=== PATIENT | male | born 1945 | race Caucasian/White ===

== ENCOUNTER 2023-11-20 09:38 | Emergency (ER) | payer MEDICARE, BC ==
--- NOTE | 2023-11-20 09:45 | ERPHSYRPT ---
- History of Present Illness Time Seen by Provider: 11/20/23 09:45 Historian: patient, family Exam Limitations: no limitations Physician History: This is a 78-year-old white male patient who was brought into the emergency department by private vehicle who is escorted by the patient's spouse. Patient's primary care provider is Dr. Flowers. 3 days ago, the patient inzahra shea was complaining of right-sided abdominal pain. The pain was intermittent. Now, the pain has become more constant and has increased in intensity. He describes it as sharp and it is more generalized. Patient currently denies chest pain. He denies shortness of breath. Patient does have a history of hypertension, atrial fibrillation on Eliquis, CHF as well. Timing/Duration: day(s) (3), worse Quality: sharpness Abdominal Pain Onset Location: RUQ Pain Radiation: other (Generalized abdomen) Severity of Pain-Max: moderate Severity of Pain-Current: mild (To moderate) Associated Symptoms: denies symptoms Previous symptoms: no prior history, no recent treatment Allergies/Adverse Reactions: No Known Drug Allergies Allergy (Verified 11/20/23 10:05) Home Medications: Apixaban [Eliquis] 5 mg PO BID 11/20/23 [History] Carvedilol 3.125 mg [Coreg 3.125 MG] 3.125 mg PO BID 11/20/23 [History] Losartan Potassium 50 mg [Cozaar 50 MG] 50 mg PO DAILY 11/20/23 [History] Spironolactone 25 mg [Aldactone 25 MG] 12.5 mg PO DAILY 11/20/23 [History] Hx Tetanus, Diphtheria Vaccination/Date Given: No Hx Influenza Vaccination/Date Given: No Hx Pneumococcal Vaccination/Date Given: Yes Travel Risk - International Travel Have you traveled outside of the country in past 3 weeks: No - Emerging Infectious Disease Are you exhibiting symptoms associated with any current EIDs: No - Review of Systems Constitutional: No Symptoms Eyes: No Symptoms Ears, Nose, & Throat: No Symptoms Respiratory: No Symptoms Cardiac: No Symptoms Abdominal/Gastrointestinal: Abdominal Pain (Primarily right side) Genitourinary Symptoms: No Symptoms Musculoskeletal: No Symptoms Skin: No Symptoms Neurological: No Symptoms Psychological: No Symptoms Endocrine: No Symptoms Hematologic/Lymphatic: No Symptoms Immunological/Allergic: No Symptoms All Other Systems: Reviewed and Negative - Past Medical History Pertinent Past Medical History: Yes Cardiac History: Hypertension, Myocardial Infarction (CA) Male Reproductive Disorders: Prostate Cancer Other Medical History: MELANOMA EYE, - Past Surgical History Past Surgical History: Yes Male Surgical History: Prostate Surgery, Other Other Surgical History: EYE SURG , SEEDS PROSTATE - Social History Smoking Status: Never smoker Exposure to second hand smoke: No Drug Use: none Patient Lives Alone: No - Social Determinants of Health Will the patient participate in the screening: Yes Do you worry about a steady place to live?: No In the past 12 months,have you had to go without utilities?: No Transportation Issues: No Has anyone in your support network made you feel unsafe?: No Have you or anyone in your house had to go without enough: No - Nursing Vital Signs Nursing Vital Signs: Initial Vital Signs Temperature 98.1 F 11/20/23 10:00 Pulse Rate 72 11/20/23 10:00 Respiratory Rate 30 H 11/20/23 10:00 Blood Pressure 137/74 11/20/23 10:00 O2 Sat by Pulse Oximetry 96 11/20/23 10:00 Pain Scale Pain Intensity 5 - Physical Exam General Appearance: no apparent distress, alert, anxiety, obese Ears, Nose, Throat Exam: normal ENT inspection, moist mucous membranes Neck Exam: normal inspection, non-tender, supple, full range of motion Respiratory Exam: normal breath sounds, lungs clear, airway intact, No chest tenderness, No respiratory distress Cardiovascular Exam: regular rate/rhythm, normal heart sounds, normal peripheral pulses Gastrointestinal/Abdomen Exam: soft, normal bowel sounds, tenderness (Right side. 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 No acute ischemia. QTc 457) Ordered Tests: Active Orders 24 hr Category Date Time Status EKG-ER Only STAT Care 11/20/23 10:41 Active IV Insertion STAT Care 11/20/23 10:41 Active ABDOMEN AND PELVIS W/0 CONTRAS [CT] Stat Exams 11/20/23 10:41 Completed CHEST 1 VIEW (PORTABLE) Stat Exams 11/20/23 10:42 Completed AMYLASE Stat Lab 11/20/23 10:35 Completed CBC W DIFF Stat Lab 11/20/23 10:35 Completed CMP Stat Lab 11/20/23 10:35 Completed LIPASE Stat Lab 11/20/23 10:35 Completed Lactic Acid Stat Lab 11/20/23 11:30 Completed TROPONIN Q4H Lab 11/20/23 10:35 Completed TROPONIN Q4H Lab 11/20/23 14:45 Ordered TROPONIN Q4H Lab 11/20/23 18:45 Ordered UA W/RFX UR CULTURE Stat Lab 11/20/23 10:41 Ordered Medication Summary Discontinued Medications Generic Name Dose Route Start Last Admin Trade Name Freq PRN Reason Stop Dose Admin Morphine Sulfate 4 mg 11/20/23 10:42 11/20/23 10:53 Morphine Sulfate 4 Mg/Ml Injection IV 11/20/23 10:43 4 mg STAT ONE Administration Morphine Sulfate Confirm 11/20/23 10:50 Morphine Sulfate 4 Mg/Ml Injection Administered 11/20/23 10:51 Dose 4 mg .ROUTE .STK-MED ONE Ondansetron HCl 4 mg 11/20/23 10:42 11/20/23 10:51 Ondansetron Hcl 4 Mg/2 Ml Vial IV 11/20/23 10:43 4 mg STAT ONE Administration Ondansetron HCl Confirm 11/20/23 10:50 Ondansetron Hcl 4 Mg/2 Ml Vial Administered 11/20/23 10:51 Dose 4 mg .ROUTE .STK-MED ONE Lab/Rad Data: Laboratory Result Diagrams 11/20/23 10:35 11/20/23 10:35 Laboratory Results 11/20/23 11/20/23 11/20/23 Range/Units 11:30 10:35 10:35 WBC (4.23-9.07) x10^3/uL RBC (4.63-6.08) x10^6/uL Hgb (13.7-17.5) g/dL Hct (40.1-51.0) % MCV (79.0-92.2) fL MCH (25.7-32.2) pg MCHC (32.3-36.5) g/dL RDW (11.6-14.4) % Plt Count (163-337) x10^3/uL MPV (9.4-12.4) fL Gran % (34.0-67.9) % Immature Gran % (Auto) (0.001-0.429) % Nucleat RBC Rel Count (0.00-0.2) % Eos # (Auto) (0.04-0.54) x10^3/uL Immature Gran # (Auto) (0.001-0.031) x10^3u/L Absolute Lymphs (auto) (1.32-3.57) x10^3/uL Absolute Monos (auto) (0.30-0.82) x10^3/uL Absolute Nucleated RBC (0.00-0.012) x10^3u/L Lymphocytes % (21.8-53.1) % Monocytes % (5.3-12.2) % Eosinophils % (0.8-7.0) % Basophils % (0.2-1.2) % Absolute Granulocytes (1.78-5.38) x10^3/uL Basophils # (0.01-0.08) x10^3/uL Sodium 140 (135-145) mmol/L Potassium 3.7 (3.5-5.1) mmol/L Chloride 108 H (98-107) mmol/L Carbon Dioxide 23 (22-30) mmol/L Anion Gap 12.6 (5-15) MEQ/L BUN 15 (9-20) mg/dL Creatinine 1.03 (0.66-1.25) mg/dL Estimated GFR 74.4 ML/MIN Glucose 117 H (74-106) mg/dL Lactic Acid 2.4 H (0.4-2.0) Calcium 8.3 L (8.4-10.2) mg/dL Total Bilirubin 5.30 H (0.2-1.3) mg/dL AST 112 H (17-59) U/L ALT 55 H (0-50) U/L Alkaline Phosphatase 126 (38-126) U/L Troponin I < 0.012 (0.000-0.033) ng/mL Serum Total Protein 6.3 (6.3-8.2) g/dL Albumin 2.9 L (3.5-5.0) g/dL Amylase 44 (30-110) U/L Lipase 28 (23-300) U/L 11/20/23 Range/Units 10:35 WBC 12.9 H (4.23-9.07) x10^3/uL RBC 4.39 L (4.63-6.08) x10^6/uL Hgb 13.7 (13.7-17.5) g/dL Hct 40.6 (40.1-51.0) % MCV 92.5 H (79.0-92.2) fL MCH 31.2 (25.7-32.2) pg MCHC 33.7 (32.3-36.5) g/dL RDW 17.1 H (11.6-14.4) % Plt Count 250 (163-337) x10^3/uL MPV 10.3 (9.4-12.4) fL Gran % 78.9 H (34.0-67.9) % Immature Gran % (Auto) 0.3 (0.001-0.429) % Nucleat RBC Rel Count 0.0 (0.00-0.2) % Eos # (Auto) 0.02 L (0.04-0.54) x10^3/uL Immature Gran # (Auto) 0.04 H (0.001-0.031) x10^3u/L Absolute Lymphs (auto) 1.43 (1.32-3.57) x10^3/uL Absolute Monos (auto) 1.19 H (0.30-0.82) x10^3/uL Absolute Nucleated RBC 0.00 (0.00-0.012) x10^3u/L Lymphocytes % 11.1 L (21.8-53.1) % Monocytes % 9.2 (5.3-12.2) % Eosinophils % 0.2 L (0.8-7.0) % Basophils % 0.3 (0.2-1.2) % Absolute Granulocytes 10.19 H (1.78-5.38) x10^3/uL Basophils # 0.04 (0.01-0.08) x10^3/uL Sodium (135-145) mmol/L Potassium (3.5-5.1) mmol/L Chloride (98-107) mmol/L Carbon Dioxide (22-30) mmol/L Anion Gap (5-15) MEQ/L BUN (9-20) mg/dL Creatinine (0.66-1.25) mg/dL Estimated GFR ML/MIN Glucose (74-106) mg/dL Lactic Acid (0.4-2.0) Calcium (8.4-10.2) mg/dL Total Bilirubin (0.2-1.3) mg/dL AST (17-59) U/L ALT (0-50) U/L Alkaline Phosphatase (38-126) U/L Troponin I (0.000-0.033) ng/mL Serum Total Protein (6.3-8.2) g/dL Albumin (3.5-5.0) g/dL Amylase (30-110) U/L Lipase (23-300) U/L - Progress Progress: improved, pain not gone completely, re-examined Progress Note: 11/20/23 12:26 My medical decision making and the assignment of moderate complexity to this patient's medical issue today is based on review of the patient's past medical history, reviewed patient medication list, reviewed patient drug allergy list, history of present illness and physical findings on examination. The workup in this patient includes placement of intravenous line, infusion normal saline solution, twelve-lead EKG, troponin level, CBC, CMP, amylase, lipase, urinalysis, chest x-ray and CT scan of the abdomen pelvis with contrast. Differential diagnosis includes but is not limited to acute intra-abdominal or intrapelvic abnormality, cholecystitis, colitis, pancreatitis, pneumonia, arrhythmia, myocardial infarction I interpreted the patient's laboratory data results. Based on the laboratory data results, the patient has a leukocytosis with a left shift, elevated liver function tests. The chest x-ray was interpreted by the radiologist and I reviewed the impression. The impression states new right infrahilar infiltrate/atelectasis. Left lung is clear. CT scan of the abdomen pelvis without contrast was interpreted by the radiologi st and I reviewed the impression. The impression states hepatomegaly with diffuse patchy hypodense disease with mottled appearance. Worrisome for metastasis. Tiny abdominopelvic free fluid presumed related. No free air. These findings on both radiographic studies were discussed in detail with the patient and his family. Counseled pt/family regarding: lab results, diagnosis, need for follow-up, rad results Medical Desision Making - Independent Historian Additional History obtained from: Spouse - Diagnostic Testing Diagnostic test were ordered, analyzed, and reviewed by me: Yes Radiological Interpretation: Reviewed by me, Teleradiologist Report - Risk of complications The pt has a mod risk of morbidity or mortality based on: Need for prescription drug management - Departure Departure Disposition: Home Clinical Impression: Hepatomegaly, Hepatic lesion, Right pulmonary infiltrate on CXR, Leukocytosis, Elevated liver enzymes Condition: Stable Critical Care Time: No Referrals: ZOE FLOWERS MD [Primary Care Provider] - Follow up/PCP as directed Additional Instructions: Take all your medications as prescribed. Call your primary care provider today, to make arrangements for follow-up appointment to be seen in the next 3 to 5 days. Prescriptions: Cefdinir 300 mg PO BID #14 cap
[2023-11-20 10:17] VITALS: TEMP 98.1
[2023-11-20] MEDS ORDERED: Zofran 4 MG/2 ML VIAL ONE (10:50)
[2023-11-20] MEDS ORDERED: MORPHINE SULFATE 4 MG INJ ONE (10:50)
[2023-11-20] MEDS: Zofran 4 MG/2 ML VIAL IV ONE (10:51)
[2023-11-20] MEDS: MORPHINE SULFATE 4 MG INJ IV ONE (10:53)
[2023-11-20 10:54] LABS: Absolute Neutrophil Ct (ANC) 10.19 x10^3/uL (1.78-5.38); BASOPHIL % 0.3 % (0.2-1.2); Basophil (Absolute #) 0.04 x10^3/uL (0.01-0.08); Eosinophil % 0.2 % (0.8-7.0); Eosinophil (Absolute #) 0.02 x10^3/uL (0.04-0.54); Hematocrit 40.6 % (40.1-51.0); Hemoglobin 13.7 g/dL (13.7-17.5); IMMATURE GRAN # 0.04 x10^3u/L (0.001-0.031); IMMATURE GRAN % 0.3 % (0.001-0.429); Lymphocyte (Absolute #) 1.43 x10^3/uL (1.32-3.57); Lymphocytes % 11.1 % (21.8-53.1); Mean Cell Volume 92.5 fL (79.0-92.2); Mean Corpuscular Hemoglobin 31.2 pg (25.7-32.2); Mean Corpuscular Hgb Concent. 33.7 g/dL (32.3-36.5); Mean Platelet Volume 10.3 fL (9.4-12.4); Monocyte (Absolute #) 1.19 x10^3/uL (0.30-0.82); Monocytes % 9.2 % (5.3-12.2); Neutrophil % 78.9 % (34.0-67.9); Platelet Count 250 x10^3/uL (163-337); Red Blood Count 4.39 x10^6/uL (4.63-6.08); Red Cell Distribution Width 17.1 % (11.6-14.4); White Blood Count 12.9 x10^3/uL (4.23-9.07)
[2023-11-20 11:06] LABS: ALBUMIN 2.9 g/dL (3.5-5.0); ANION GAP 12.6 MEQ/L (5-15); BILIRUBIN,TOTAL 5.3 mg/dL (0.2-1.3); Calcium 8.3 mg/dL (8.4-10.2); Creatinine 1 1.03 mg/dL (0.66-1.25); EST GLOMERULAR FILTRATION RATE 74.4 ML/MIN; Potassium 3.7 mmol/L (3.5-5.1); Total Protein 6.3 g/dL (6.3-8.2)
--- NOTE | 2023-11-20 12:11 | XRAY ---
Indication: Painful inspiration. Comparison: November 24, 2022 Portable apical lordotic chest less inflated with new right infrahilar infiltrate/atelectasis. Left lung clear. Heart not enlarged. Bony thorax intact again with osteopenia and degenerative changes.
--- NOTE | 2023-11-20 12:15 | XRAY ---
Indication: Right abdomen pain. Multiple contiguous axial images obtained through the abdomen and pelvis without contrast. Comparison: None Lung bases demonstrates mild bilateral dependent atelectasis. No infiltrate or effusion. Heart borderline enlarged. Small hiatal hernia. Noncontrasted stomach and bowel loops appear nonobstructed with normal appendix. Minimal scattered colonic diverticulosis without diverticulitis. Liver is enlarged measuring 26.3 cm and demonstrates diffuse scattered patchy hypodensities/mottled appearance worrisome for metastasis. Tiny abdominal and small pelvic free fluid. No walled off fluid collection or free air. Remaining gallbladder, pancreas, spleen, adrenal glands, kidneys, ureters, and bladder are unremarkable for noncontrast exam. Incidental prostate radiation seeds. Minimal aortoiliac calcifications without AAA. Osseous structures intact with osteopenia, mild/moderate degenerative changes throughout spine, and mild degenerative changes both hips. No suspicious bony lesions. Impression: 1. Hepatomegaly with diffuse patchy hypodensities/mottled appearance worrisome for metastasis. Abdominal/pelvic free fluid presumed related. 2. Chronic findings including borderline cardiomegaly, hiatal hernia, colonic diverticulosis, prostate radiation seeds, arteriosclerotic disease, and chronic bony findings.
[2023-11-20 12:56] VITALS: PULSE 73
[2023-11-20] MEDS ORDERED: ROCEPHIN 1 GM / 100 ML NaCl 1 GM/100 ML IVPB IV ONE (13:01)
[2023-11-20] MEDS: ROCEPHIN 1 GM / 100 ML NaCl 1 GM/100 ML IVPB IV ONE (13:02)
[2023-11-20 13:04] VITALS: BP 101/66; RESP 29; O2SAT 95
== END 2023-11-20 13:43 | disposition home or self-care (01) ==
LOC: ED 09:38
DX: R16.0 Hepatomegaly, not elsewhere classified (principal); K76.9 Liver disease, unspecified; R91.8 Other nonspecific abnormal finding of lung field; D72.829 Elevated white blood cell count, unspecified; R94.5 Abnormal results of liver function studies; R10.11 Right upper quadrant pain; I11.0 Hypertensive heart disease with heart failure; I50.9 Heart failure, unspecified; Z79.01 Long term (current) use of anticoagulants; Z79.899 Other long term (current) drug therapy
CPT/HCPCS: 36000; 36415; 71045; 74176; 80053; 82150; 83605; 83690; 84484; 85025; 93005; 96365; 96374; 96375; 99284; J0696; J2270; J2405

== ENCOUNTER 2023-12-17 12:57 | Emergency (ER) | payer MEDICARE, BC ==
--- NOTE | 2023-12-17 13:17 | ERPHSYRPT ---
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 He came in with SObreath today which has improved he is slightly hypotensive and takes midrin at home, he has no current pain. Discussed risks/benefits with pt and family of CBC, INR, NH3, CXR, EKG Trop D dimer, CMP, FLuids, Levo, IV, Rocephin, Cultures, and they wish to proceed so these are ordered. Results discussed. Timing/Duration: today Severity: moderate Modifying Factors: Improves With: nothing Associated Symptoms: shortness of breath Allergies/Adverse Reactions: No Known Drug Allergies Allergy (Verified 12/17/23 13:04) Home Medications: Midodrine HCl [Proamatine] 5 mg PO DAILY 12/17/23 [History] Trazodone HCl 100 mg PO DAILY 12/17/23 [History] Hx Tetanus, Diphtheria Vaccination/Date Given: No Hx Influenza Vaccination/Date Given: No Hx Pneumococcal Vaccination/Date Given: Yes Travel Risk - Emerging Infectious Disease Are you exhibiting symptoms associated with any current EIDs: No Symptoms: Abdominal Pain - Review of Systems Constitutional: No Fever, No Chills Eyes: No Symptoms Ears, Nose, & Throat: No Symptoms Respiratory: Dyspnea, No Cough Cardiac: No Chest Pain, No Edema, No Syncope Abdominal/Gastrointestinal: No Abdominal Pain, No Nausea, No Vomiting, No Diarrhea Genitourinary Symptoms: No Dysuria Musculoskeletal: No Back Pain, No Neck Pain Skin: No Rash Neurological: No Dizziness, No Focal Weakness, No Sensory Changes Psychological: No Symptoms Endocrine: No Symptoms Hematologic/Lymphatic: No Symptoms Immunological/Allergic: No Symptoms All Other Systems: Reviewed and Negative - Past Medical History Pertinent Past Medical History: Yes Cardiac History: Hypertension, Myocardial Infarction ([place]) Respiratory History: No Pertinent History GI Medical History: Diverticulosis Male Reproductive Disorders: Prostate Cancer Other Medical History: MELANOMA EYE, - Past Surgical History Past Surgical History: Yes Cardiac: Cardiac Catheterization Musculoskeletal: Orthopedic Surgery Male Surgical History: Prostate Surgery, Other Other Surgical History: EYE SURG , SEEDS PROSTATE - Social History Smoking Status: Never smoker Exposure to second hand smoke: No Drug Use: none Patient Lives Alone: No - Social Determinants of Health Will the patient participate in the screening: Yes Do you worry about a steady place to live?: No In the past 12 months,have you had to go without utilities?: No Transportation Issues: No Has anyone in your support network made you feel unsafe?: No Have you or anyone in your house had to go without enough: No - Nursing Vital Signs Nursing Vital Signs: Initial Vital Signs Temperature 97.4 F 12/17/23 13:27 Pulse Rate 62 12/17/23 13:27 Respiratory Rate 18 12/17/23 13:27 Blood Pressure 81/64 12/17/23 13:27 O2 Sat by Pulse Oximetry 97 12/17/23 13:27 Pain Scale Pain Intensity 3 - Physical Exam General Appearance: no apparent distress, alert Eye Exam: PERRL/EOMI, eyes nml inspection Ears, Nose, Throat Exam: normal ENT inspection, TMs normal, pharynx normal, moist mucous membranes Neck Exam: normal inspection, non-tender, supple, full range of motion Respiratory Exam: normal breath sounds, lungs clear, No respiratory distress Cardiovascular Exam: regular rate/rhythm, normal heart sounds, normal peripheral pulses Gastrointestinal/Abdomen Exam: soft, normal bowel sounds, No tenderness, No mass Rectal Exam: deferred Back Exam: normal inspection, normal range of motion, No CVA tenderness, No vertebral tenderness Extremity Exam: normal inspection, normal range of motion, pelvis stable Neurologic Exam: alert, oriented x 3, cooperative, normal mood/affect, nml cerebellar function, nml station & gait, sensation nml, No motor deficits Skin Exam: normal color, warm, dry, No rash Lymphatic Exam: No adenopathy SpO2 Interpretation: hypoxic SpO2: 88 O2 Delivery: Nasal Cannula - Course Nursing assessment & vital signs reviewed: Yes EKG Interpreted by Me: Sinus Rhythm, Right Garner Deviation, Right Bundle Branch Block, Non-specific ST Changes - Radiology Exams Chest X-ray Interpretation: Interpreted by me, Reviewed by me, Infiltrates Ordered Tests: Active Orders 24 hr Category Date Time Status CHEST 1 VIEW (PORTABLE) Stat Exams 12/17/23 13:43 Taken CBC W DIFF Stat Lab 12/17/23 13:35 Completed CMP Stat Lab 12/17/23 13:35 Completed Lactic Acid Stat Lab 12/17/23 13:32 Completed Lactic Acid Stat Lab 12/17/23 15:38 Completed PT INR [PROTIME WITH INR] Stat Lab 12/17/23 13:45 Completed TROPONIN Q4H Lab 12/17/23 13:35 Completed TROPONIN Q4H Lab 12/17/23 17:42 Completed TROPONIN Q4H Lab 12/17/23 21:30 Ordered Medication Summary Generic Name Dose Route Start Last Admin Trade Name Uvaldo PRN Reason Stop Dose Admin Sodium Chloride 1,000 mls @ 100 mls/hr 12/17/23 13:30 12/17/23 13:33 Sodium Chloride 0.9% 1000 Ml IV 01/16/24 13:29 100 mls/hr .Q10H KATRINA Administration Norepinephrine/Dextrose 8 mg in 250 mls @ 15 mls/hr 12/17/23 13:29 12/17/23 13:33 Norepinephrine 8 Mg/250 Ml-D5w IV 01/16/24 13:28 8 mcg/min .[id number] PRN 15 mls/hr HYPOTENSION Administration Protocol 8 MCG/MIN Discontinued Medications Generic Name Dose Route Start Last Admin Trade Name Uvaldo PRN Reason Stop Dose Admin Hydromorphone HCl 0.5 mg 12/17/23 14:50 12/17/23 14:57 Hydromorphone 1 Mg/1ml Inj IV 12/17/23 14:51 0.5 mg STAT ONE Administration Hydromorphone HCl Confirm 12/17/23 14:55 Hydromorphone 1 Mg/1ml Inj Administered 12/17/23 14:56 Dose 1 mg .ROUTE .STK-MED ONE Ceftriaxone Sodium 1 gm in 100 mls @ 200 mls/hr 12/17/23 13:48 12/17/23 14:54 Rocephin 1 Gm / 100 Ml Nacl IV 12/17/23 14:17 Infused STAT ONE Infusion Ceftriaxone Sodium Confirm 12/17/23 13:50 Rocephin 1 Gm / 100 Ml Nacl Administered 12/17/23 13:51 Dose 1 gm in 100 mls @ ud IV .STK-MED ONE Lab/Rad Data: Laboratory Result Diagrams 12/17/23 13:35 12/17/23 13:35 Laboratory Results 12/17/23 12/17/23 12/17/23 Range/Units 17:42 15:38 13:51 WBC (4.23-9.07) x10^3/uL RBC (4.63-6.08) x10^6/uL Hgb (13.7-17.5) g/dL Hct (40.1-51.0) % MCV (79.0-92.2) fL MCH (25.7-32.2) pg MCHC (32.3-36.5) g/dL RDW (11.6-14.4) % Plt Count (163-337) x10^3/uL MPV (9.4-12.4) fL Gran % (34.0-67.9) % Immature Gran % (Auto) (0.001-0.429) % Nucleat RBC Rel Count (0.00-0.2) % Eos # (Auto) (0.04-0.54) x10^3/uL Immature Gran # (Auto) (0.001-0.031) x10^3u/L Absolute Lymphs (auto) (1.32-3.57) x10^3/uL Absolute Monos (auto) (0.30-0.82) x10^3/uL Absolute Nucleated RBC (0.00-0.012) x10^3u/L Lymphocytes % (21.8-53.1) % Monocytes % (5.3-12.2) % Eosinophils % (0.8-7.0) % Basophils % (0.2-1.2) % Absolute Granulocytes (1.78-5.38) x10^3/uL Basophils # (0.01-0.08) x10^3/uL PT (9.4-12.5) SECONDS INR (0.8-3.0) Sodium (135-145) mmol/L Potassium (3.5-5.1) mmol/L Chloride (98-107) mmol/L Carbon Dioxide (22-30) mmol/L Anion Gap (5-15) MEQ/L BUN (9-20) mg/dL Creatinine (0.66-1.25) mg/dL Estimated GFR ML/MIN Glucose (74-106) mg/dL Lactic Acid 2.6 H (0.4-2.0) Calcium (8.4-10.2) mg/dL Total Bilirubin (0.2-1.3) mg/dL AST (17-59) U/L ALT (0-50) U/L Alkaline Phosphatase (38-126) U/L Ammonia 22 (9-30) umol/L Troponin I 0.018 (0.000-0.033) ng/mL Serum Total Protein (6.3-8.2) g/dL Albumin (3.5-5.0) g/dL 12/17/23 12/17/23 12/17/23 Range/Units 13:45 13:35 13:35 WBC (4.23-9.07) x10^3/uL RBC (4.63-6.08) x10^6/uL Hgb (13.7-17.5) g/dL Hct (40.1-51.0) % MCV (79.0-92.2) fL MCH (25.7-32.2) pg MCHC (32.3-36.5) g/dL RDW (11.6-14.4) % Plt Count (163-337) x10^3/uL MPV (9.4-12.4) fL Gran % (34.0-67.9) % Immature Gran % (Auto) (0.001-0.429) % Nucleat RBC Rel Count (0.00-0.2) % Eos # (Auto) (0.04-0.54) x10^3/uL Immature Gran # (Auto) (0.001-0.031) x10^3u/L Absolute Lymphs (auto) (1.32-3.57) x10^3/uL Absolute Monos (auto) (0.30-0.82) x10^3/uL Absolute Nucleated RBC (0.00-0.012) x10^3u/L Lymphocytes % (21.8-53.1) % Monocytes % (5.3-12.2) % Eosinophils % (0.8-7.0) % Basophils % (0.2-1.2) % Absolute Granulocytes (1.78-5.38) x10^3/uL Basophils # (0.01-0.08) x10^3/uL PT 23.5 H (9.4-12.5) SECONDS INR 2.28 (0.8-3.0) Sodium 137 (135-145) mmol/L Potassium 4.6 (3.5-5.1) mmol/L Chloride 101 (98-107) mmol/L Carbon Dioxide 13 L* (22-30) mmol/L Anion Gap 27.9 H (5-15) MEQ/L BUN 105 H (9-20) mg/dL Creatinine 6.71 H (0.66-1.25) mg/dL Estimated GFR 7.9 ML/MIN Glucose 70 L (74-106) mg/dL Lactic Acid (0.4-2.0) Calcium 8.2 L (8.4-10.2) mg/dL Total Bilirubin 38.50 H (0.2-1.3) mg/dL AST 115 H (17-59) U/L ALT 40 (0-50) U/L Alkaline Phosphatase 86 (38-126) U/L Ammonia (9-30) umol/L Troponin I 0.020 (0.000-0.033) ng/mL Serum Total Protein 6.0 L (6.3-8.2) g/dL Albumin 2.7 L (3.5-5.0) g/dL 12/17/23 12/17/23 Range/Units 13:35 13:32 WBC 10.9 H (4.23-9.07) x10^3/uL RBC 3.89 L (4.63-6.08) x10^6/uL Hgb 12.6 L (13.7-17.5) g/dL Hct 36.0 L (40.1-51.0) % MCV 92.5 H (79.0-92.2) fL MCH 32.4 H (25.7-32.2) pg MCHC 35.0 (32.3-36.5) g/dL RDW 19.4 H (11.6-14.4) % Plt Count 158 L (163-337) x10^3/uL MPV 10.4 (9.4-12.4) fL Gran % 85.7 H (34.0-67.9) % Immature Gran % (Auto) 0.6 H (0.001-0.429) % Nucleat RBC Rel Count 0.0 (0.00-0.2) % Eos # (Auto) 0.02 L (0.04-0.54) x10^3/uL Immature Gran # (Auto) 0.07 H (0.001-0.031) x10^3u/L Absolute Lymphs (auto) 0.83 L (1.32-3.57) x10^3/uL Absolute Monos (auto) 0.62 (0.30-0.82) x10^3/uL Absolute Nucleated RBC 0.00 (0.00-0.012) x10^3u/L Lymphocytes % 7.6 L (21.8-53.1) % Monocytes % 5.7 (5.3-12.2) % Eosinophils % 0.2 L (0.8-7.0) % Basophils % 0.2 (0.2-1.2) % Absolute Granulocytes 9.32 H (1.78-5.38) x10^3/uL Basophils # 0.02 (0.01-0.08) x10^3/uL PT (9.4-12.5) SECONDS INR (0.8-3.0) Sodium (135-145) mmol/L Potassium (3.5-5.1) mmol/L Chloride (98-107) mmol/L Carbon Dioxide (22-30) mmol/L Anion Gap (5-15) MEQ/L BUN (9-20) mg/dL Creatinine (0.66-1.25) mg/dL Estimated GFR ML/MIN Glucose (74-106) mg/dL Lactic Acid 3.1 H (0.4-2.0) Calcium (8.4-10.2) mg/dL Total Bilirubin (0.2-1.3) mg/dL AST (17-59) U/L ALT (0-50) U/L Alkaline Phosphatase (38-126) U/L Ammonia (9-30) umol/L Troponin I (0.000-0.033) ng/mL Serum Total Protein (6.3-8.2) g/dL Albumin (3.5-5.0) g/dL - Progress Progress: improved, re-examined Progress Note: 12/17/23 13:29 discussed with pt and family and they wish NO COde status and papers were signed. They wish transfer to if they can take pt for stabilization to attempt Immune Tx for metastic melanoma. 12/17/23 13:30 Pt and family after discussion of risks/benefits, wish BP support with levo drip while awaiting transport. 12/17/23 19:01 Consulted with hospitalist at [facility] and they accepted pt in transfer and will see in unit since on levo drip - family and pt agree with plan. Discussed with DrNhung: Other ([facility]ist) Will see patient in: hospital (full admit) Counseled pt/family regarding: lab results, diagnosis, need for follow-up, rad results Medical Desision Making - Independent Historian Additional History obtained from: Family, EMS - Discussion of managment Reviewed:: Test results, Need for additional workup Agreed on:: Treatment plan, need for follow-up - Diagnostic Testing Diagnostic test were ordered, analyzed, and reviewed by me: Yes Radiological Interpretation: Interpreted by me, Reviewed by me, Teleradiologist Report - Risk of complications The pt has a mod risk of morbidity or mortality based on: Need for prescription drug management The pt has a high risk of morbidity or mortality based on: Decision regarding hospitilization or escalation of hosp level of care - Departure Clinical Impression: liver failure with mets, hypotension/sepsis/pneumonia Condition: Poor Critical Care Time: Yes Critical Care Time(excluding separately billable procedures): Critical 30-74 mins (hypotensive and end of life discussion, placed on levo drip for BP, and sepsis given AB, fluids estimated 70 minutes) Referrals: ZOE FLOWERS MD [Primary Care Provider] - Follow up/PCP as directed
[2023-12-17 13:28] VITALS: TEMP 97.4
[2023-12-17] MEDS ORDERED: Sodium Chloride 0.9% 1000 ML 1,000 ML ONE ×2 (13:31→21:31)
[2023-12-17] MEDS ORDERED: NOREPINEPHRINE 8 MG/250 ML-D5W 8 MG/250 ML PLAST..BAG IV ONE (13:31)
[2023-12-17] MEDS: Sodium Chloride 0.9% 1000 ML 1,000 ML IV SCH (13:33)
[2023-12-17] MEDS: NOREPINEPHRINE 8 MG/250 ML-D5W 8 MG/250 ML PLAST..BAG IV PRN (13:33)
[2023-12-17 13:38] LABS: Absolute Neutrophil Ct (ANC) 9.32 x10^3/uL (1.78-5.38); BASOPHIL % 0.2 % (0.2-1.2); Basophil (Absolute #) 0.02 x10^3/uL (0.01-0.08); Eosinophil % 0.2 % (0.8-7.0); Eosinophil (Absolute #) 0.02 x10^3/uL (0.04-0.54); Hemoglobin 12.6 g/dL (13.7-17.5); IMMATURE GRAN # 0.07 x10^3u/L (0.001-0.031); IMMATURE GRAN % 0.6 % (0.001-0.429); Lymphocyte (Absolute #) 0.83 x10^3/uL (1.32-3.57); Lymphocytes % 7.6 % (21.8-53.1); Mean Cell Volume 92.5 fL (79.0-92.2); Mean Corpuscular Hemoglobin 32.4 pg (25.7-32.2); Mean Platelet Volume 10.4 fL (9.4-12.4); Monocyte (Absolute #) 0.62 x10^3/uL (0.30-0.82); Monocytes % 5.7 % (5.3-12.2); Neutrophil % 85.7 % (34.0-67.9); Platelet Count 158 x10^3/uL (163-337); Red Blood Count 3.89 x10^6/uL (4.63-6.08); Red Cell Distribution Width 19.4 % (11.6-14.4); White Blood Count 10.9 x10^3/uL (4.23-9.07)
[2023-12-17] MEDS ORDERED: ROCEPHIN 1 GM / 100 ML NaCl 1 GM/100 ML IVPB IV ONE (13:50)
[2023-12-17 13:51] LABS: ALBUMIN 2.7 g/dL (3.5-5.0); ANION GAP 27.9 MEQ/L (5-15); Calcium 8.2 mg/dL (8.4-10.2); Creatinine 1 6.71 mg/dL (0.66-1.25); EST GLOMERULAR FILTRATION RATE 7.9 ML/MIN; Potassium 4.6 mmol/L (3.5-5.1)
[2023-12-17] MEDS: ROCEPHIN 1 GM / 100 ML NaCl 1 GM/100 ML IVPB IV ONE (13:54)
[2023-12-17 13:59] LABS: INR 2.28 (0.8-3.0); PROTIME 23.5 SECONDS (9.4-12.5)
[2023-12-17 14:06] LABS: BILIRUBIN,TOTAL 38.5 mg/dL (0.2-1.3)
[2023-12-17] MEDS ORDERED: Hydromorphone 1 mg/ml Injection ONE (14:55)
[2023-12-17] MEDS: Hydromorphone 1 mg/ml Injection IV ONE ×2 (14:57→21:03)
--- NOTE | 2023-12-17 19:16 | XRAY ---
Indication: Short of breath. Comparison: November 20, 2023 Portable apical lordotic chest demonstrates grossly stable right infrahilar infiltrate/atelectasis. Worsening right hemidiaphragm elevation with new right mid lower lung discoid atelectasis. Remaining heart and left lung unremarkable. Bony thorax intact again with osteopenia and degenerative changes.
[2023-12-17 21:26] VITALS: BP 100/56; PULSE 72; RESP 18; O2SAT 97
== END 2023-12-17 21:25 | disposition short-term general hospital (02) ==
LOC: ED 12:57
DX: C22.9 Malignant neoplasm of liver, not specified as primary or secondary (principal); K72.90 Hepatic failure, unspecified without coma; A41.9 Sepsis, unspecified organism; J18.9 Pneumonia, unspecified organism; I95.9 Hypotension, unspecified; R06.02 Shortness of breath; I10 Essential (primary) hypertension; Z79.899 Other long term (current) drug therapy
CPT/HCPCS: 36000; 36415; 71045; 80053; 82140; 83605; 84484; 85025; 85610; 96365; 96367; 96374; 96375; 99285; 99291; J0696; J1170